=== PATIENT | female | born 1960 | race Caucasian/White ===

== ENCOUNTER 2020-07-31 11:28 | Emergency (ER) | payer BC ==
[~2020-07-31] VITALS: Ht 160 cm; Wt 56.0 kg
[~2020-07-31 11:28] MED LIST: BACTRIM DS1 TAB PO; BENZONATATE200 MG PO; CIPROFLOXACN500 MG PO; FLAGYL500 MG OR; IBUPROFEN600 MG PO; MEDDOSEPAK PO; TESSALON200 MG PO; ZITHROMAX500 MG PO; [UNRECOGNIZED DRUG - CODE]
[2020-07-31] MEDS ORDERED: BACTRIM DS1 TAB PO (12:04)
[2020-07-31 12:30] VITALS: BP 134/84
== END 2020-07-31 12:30 | disposition home or self-care (01) | DRG 603 ==
LOC: ED 11:28
PROC: 0H98XZZ Drainage of Buttock Skin, External Approach (ICD-10-PCS; principal; 2020-07-31)
DX: L02.31 Cutaneous abscess of buttock (principal); B95.2 Enterococcus as the cause of diseases classified elsewhere

== ENCOUNTER 2021-07-24 17:15 | Emergency (ER) | payer BC ==
[~2021-07-24] VITALS: Ht 160 cm; Wt 79.5 kg
[2021-07-24 17:44] LABS: IMMATURE GRANULOCYTES 0.3 % (0.0-5.0); MEAN CELL VOLUME 88.4 fL CALC (80.0-100.0); MEAN CORPUSCULAR HGB CONC 32.8 g/dL CAL (32.0-36.0); NEUT# 8.46 thou/uL (2.00-7.15); RED BLOOD COUNT 4.21 mill/uL (4.20-5.60); RED CELL DISTRI WIDTH 13.2 % (11.5-15.5)
[2021-07-24 17:45] LABS: HEMATOCRIT 37.2 % (37.0-47.0); HEMOGLOBIN 12.2 g/dl (12.0-16.0)
[2021-07-24 17:52] LABS: ALKALINE PHOSPHATASE < 20 u/l (38-126); BILIRUBIN, TOTAL 0.3 mg/dL (0.0-1.4); BUN 13 mg/dL (7-17); BUN/CREATININE RATIO 21 (12-20 (CALC)); CREATININE 0.6 mg/dL (0.5-1.0); GFR > 60 ML/MIN (>=60 (CALC)); GFR FOR AFR.AMER. > 60 ML/MIN (>=60 (CALC)); SGOT/AST 17 u/l (14-36); SODIUM 142 mmol/l (137-146)
[2021-07-24 18:01] LABS: ACT PARTIAL THROMBO TIME 23.4 SECONDS (20.0-32.5); INTERNATIONAL NORMALIZED RATIO 1.1 RATIO (0.7-1.3); PROTHROMBIN TIME 11.5 SECONDS (9.0-12.5)
[2021-07-24 18:04] LABS: ALBUMIN 2.1 g/dL (3.2-5.0); ANION GAP 9 (6-22 (CALC)); CARBON DIOXIDE 14 mmol/l (22-30); CHLORIDE 122 mmol/l (95-108); POTASSIUM 2.5 mmol/l (3.5-5.1); TOTAL PROTEIN 4.4 g/dL (6.3-8.2)
[2021-07-24 18:40] LABS: ALKALINE PHOSPHATASE 25 u/l (38-126); BUN 19 mg/dL (7-17); BUN/CREATININE RATIO 20 (12-20 (CALC)); CHLORIDE 108 mmol/l (95-108); GFR 57 ML/MIN (>=60 (CALC)); GFR FOR AFR.AMER. > 60 ML/MIN (>=60 (CALC)); SGOT/AST 24 u/l (14-36); SODIUM 139 mmol/l (137-146)
[2021-07-24 18:42] LABS: ALBUMIN 3.7 g/dL (3.2-5.0); ANION GAP 14 (6-22 (CALC)); BILIRUBIN, TOTAL 0.5 mg/dL (0.0-1.4); CARBON DIOXIDE 21 mmol/l (22-30); POTASSIUM 3.5 mmol/l (3.5-5.1); TOTAL PROTEIN 6.6 g/dL (6.3-8.2)
[2021-07-24 19:15] VITALS: BP 118/61
== END 2021-07-24 19:30 | DRG 605 ==
LOC: ED 17:15
PROC: 0HQEXZZ Repair Left Lower Arm Skin, External Approach (ICD-10-PCS; principal; 2021-07-24)
PROC: 0HQDXZZ Repair Right Lower Arm Skin, External Approach (ICD-10-PCS; 2021-07-24)
DX: S61.512A Laceration without foreign body of left wrist, initial encounter (principal); S66.922A Laceration of unspecified muscle, fascia and tendon at wrist and hand level, left hand, initial encounter; S61.511A Laceration without foreign body of right wrist, initial encounter; I95.9 Hypotension, unspecified; W25.XXXA Contact with sharp glass, initial encounter